=== PATIENT | female | born 1950 | race Caucasian/White ===

== ENCOUNTER 2019-09-13 09:04 | Inpatient (IN) ==
[~2019-09-13 09:04] MED LIST: ACETAMINOPHEN 500 MG TABLET PO ONE; Clindamycin 900mg (Premix) 900 MG/50 ML BAG IV ONE; Gabapentin 600 MG TABLET PO ONE; LIDOCAINE W/ SODIUM BICARB 0.5 ML SYR ONE; LIDOCAINE W/ SODIUM BICARB 0.5 ML SYR SUBD ONE; Lactated Ringers 1,000 ML PRIMARY IV ONE; Nasal Sanitizer POPSWAB ampule 3 AMP (Nozin) PREOP DOSE ENOS SCH; PANTOPRAZOLE 20 MG TABLET.DR PO ONE
[2019-09-13] MEDS ORDERED: fentaNYL Inj 100 MCG/2 ML VIAL ONE (09:55)
[2019-09-13] MEDS ORDERED: PROPOFOL 10 MG/1 ML (200 MG/20 ML) VIAL IV ONE (09:55)
[2019-09-13] MEDS ORDERED: MIDAZOLAM HCL 2 MG/2 ML VIAL ONE (09:55)
[2019-09-13] MEDS: Lactated Ringers 1,000 ML PRIMARY IV SCH ×2 (10:19→15:44)
[2019-09-13] MEDS ORDERED: ROPIVACAINE HCL 7.5 MG/1 ML - 20 ML ONE (10:57)
[2019-09-13] MEDS ORDERED: BUPIVACAINE 0.5% W/EPI MPF -30 ML VIAL IV ONE (10:58)
[2019-09-13] MEDS ORDERED: TRANEXAMIC ACID 1,000 MG / 10 ML VIAL ONE (11:50)
[2019-09-13] MEDS ORDERED: BACITRACIN 50,000 UNIT VIAL IRRIG ONE (11:55)
[2019-09-13] MEDS ORDERED: Sodium Chloride 0.9% vial 20 ML ONE ×2 (11:55→12:10)
[2019-09-13] MEDS ORDERED: BUPivacaine Inj 0.25% PF - 10ml vial ONE (12:06)
[2019-09-13] MEDS ORDERED: BUPivacaine Liposome/PF (Exparel) Inj 20ml vial INFIL ONE (12:10)
[2019-09-13] MEDS ORDERED: Lactated Ringers 1,000 ML PRIMARY IV ONE (12:15)
[2019-09-13] MEDS ORDERED: BUPIVACAINE SPLASH ONE ×2 (12:30)
[2019-09-13] MEDS ORDERED: KETOROLAC SPLASH ONE ×2 (12:30)
[2019-09-13] MEDS ORDERED: EPINEPHrine Inj (1:1,000) 30mg/30ml vial ONE (12:42)
[2019-09-13] MEDS ORDERED: THROMBIN (BOVINE) 20,000 UNIT KIT TOPICAL ONE (12:42)
[2019-09-13] MEDS ORDERED: BISACODYL 5 MG TABLET PO PRN (15:14)
[2019-09-13] MEDS ORDERED: diphenhydrAMINE 25 MG CAPSULE PO PRN (15:14)
[2019-09-13] MEDS ORDERED: Lactated Ringers 1,000 ML PRIMARY IV SCH (15:14)
[2019-09-13] MEDS ORDERED: DOCUSATE 100 MG CAPSULE PO PRN (15:14)
[2019-09-13] MEDS ORDERED: LIDOCAINE HCL 2 % 10 ML JELLY URO-JECT TOPICAL PRN (15:14)
[2019-09-13] MEDS ORDERED: CALCIUM CARBONATE 500 MG (TUMS) CHEWABLE TABLET PO PRN (15:14)
[2019-09-13] MEDS ORDERED: ONDANSETRON 4 MG/2 ML VIAL IVP PRN (15:14)
[2019-09-13] MEDS: Clindamycin 900mg (Premix) 900 MG/50 ML BAG IV SCH ×2 (17:25→23:23)
[2019-09-13] MEDS ORDERED: ZOLPIDEM 10 MG TABLET PO PRN (17:53)
[2019-09-13] MEDS: HYDROcodone-APAP 7.5 MG-325 MG TABLET PO PRN ×2 (18:43→23:38)
[2019-09-13] MEDS: ENOXAPARIN SODIUM 30 MG/0.3 ML SYRINGE SUBCUT SCH (20:26)
[2019-09-14 05:09] VITALS: O2SAT 97
[2019-09-14] MEDS: HYDROcodone-APAP 7.5 MG-325 MG TABLET PO PRN ×2 (05:10→09:00)
[2019-09-14] MEDS: Clindamycin 900mg (Premix) 900 MG/50 ML BAG IV SCH (05:11)
[2019-09-14 05:23] LABS: Hematocrit [HCT] 33.4 % (37.0-47.0); Hemoglobin [HGB] 11.1 g/dL (12.0-16.0); MEAN CORPUSCULAR HGB CONC 33.2 g/dL (33-37); MEAN CORPUSCULAR VOLUME 85.2 FL (81-99); MEAN PLATELET VOLUME 10.2 FL (7.4-12.2); RED BLOOD COUNT 3.92 10^6/uL (4.20-5.40)
[2019-09-14 05:36] LABS: BLOOD UREA NITROGEN 18 mg/dL (7-22)
[2019-09-14 07:29] VITALS: BP 125/64; RESP 18; TEMP 98.1
[2019-09-14] MEDS: ENOXAPARIN SODIUM 30 MG/0.3 ML SYRINGE SUBCUT SCH (09:00)
== END 2019-09-14 10:23 | disposition home or self-care (01) | DRG 483 ==
LOC: OPS 09:04 → MED/SURG 14:53
PROVIDERS: ADMIT Orthopaedic Surgery; ATTEND Orthopaedic Surgery